=== PATIENT | female | born 1980 | race Caucasian/White ===

== ENCOUNTER 2016-11-29 17:49 | Emergency (ER) | payer MEDICAID ==
[2016-11-29] MEDS ORDERED: IBUPROFEN 600 MG TAB PO ONE (17:58)
[2016-11-29] MEDS ORDERED: ACETAMINOPHEN 500 MG TAB PO ONE (17:58)
[2016-11-29 18:01] VITALS: RESP 18; TEMP 97.5
--- NOTE | 2016-11-29 18:28 | EDPHY ---
H & P Time Seen by Provider: 11/29/16 17:55 HPI/ROS: This patient complains of left index finger injury from a horse bite shortly prior to arrival while wearing a glove. She explains that the horse was quite enthusiastic about the hay she was holding in inadvertently bit her finger. She felt severe pain and-she was pulling off her glove felt a pop. She notes swelling and ecchymosis at the PIP joint with increased pain with movement since the injury occurred shortly prior to arrival. She drove herself here by private vehicle. She did not take any medications prior to arrival and notes no other exacerbating factors. ROS: Neuro: No numbness or tingling Integumentary: No laceration or abrasion Musculoskeletal: No other injuries 5 point ROS is otherwise negative. Past Medical/Surgical History: Otherwise healthy Smoking Status: Heavy smoker Physical Exam: Physical Exam Vital signs are normal. General: No acute distress Cardiac: Brisk capillary refill is intact throughout the affected finger. Skin: No rash or pallor. No laceration or abrasion. Extremities: Atraumatic normal except for left index finger Left index finger: Patient has swelling, ecchymosis and tenderness to the PIP joint with limited range of motion due to pain. No malrotation is appreciated or gross deformity. No significant laxity at the affected PIP joint on my exam. Neuro: Alert with no sensorimotor deficits in the affected finger. Initial differential diagnosis: Finger dislocation with self reduction, finger fracture, finger sprain, finger contusion Constitutional: Initial Vital Signs Temperature (C) 36.4 C 11/29/16 17:58 Heart Rate 77 11/29/16 17:58 Respiratory Rate 18 11/29/16 17:58 Blood Pressure 139/99 H 11/29/16 17:58 O2 Sat (%) 98 11/29/16 17:58 O2 Delivery Mode Room Air Allergies/Adverse Reactions: acetaminophen [From Vicodin] Allergy (Verified 11/29/16 17:57) amoxicillin Allergy (Verified 11/29/16 17:57) hydrocodone [From Vicodin] Allergy (Verified 11/29/16 17:57) Home Medications: Medication Instructions Recorded traMADol [Ultram 50 mg (*)] 50 - 100 mg PO Q4 PRN #12 tab 11/29/16 MDM/Departure - MDM Diagnostics: Finger x-ray 3 view: Negative for fracture by my interpretation-soft tissue swelling is evident at the PIP. Imaging Results: Imaging Impressions Finger X-Ray 11/29/16 17:59 Impression: No fracture. [place] soft tissue swelling. Medications Given: Discontinued Medications Acetaminophen (Tylenol) 1,000 mg PO EDNOW ONE Stop: 11/29/16 17:59 Last Admin: 11/29/16 18:11 Dose: 1,000 mg Ibuprofen (Motrin) 600 mg PO EDNOW ONE Stop: 11/29/16 17:59 Last Admin: 11/29/16 18:11 Dose: 600 mg ED Course/Re-evaluation: Patient is placed in Alumafoam volar splint with plan for splinting with this for 3 days followed by dynamic splinting with aby taping. Counseled her regarding her injury. I suspect that she had a finger dislocation that self reduced when she pulled off her glove in a counseled her regarding this. On exam no evidence of significant laxity or other complicating factors. She will follow up with Orthopedics. Ibuprofen and Tylenol p.o.. Patient complained of significant ongoing pain. Will prescribe tramadol to use if needed for pain that prevents sleep despite ibuprofen and Tylenol. The acetaminophen allergy listed above is actually hydrocodone and I think is the hydrocodone component of the medication rather than a true Tylenol allergy - Depart Disposition: Home, Routine, Self-Care Clinical Impression: Finger sprain Qualifiers: Encounter type: initial encounter Finger: ring finger Sprain of finger site: interphalangeal joint Laterality: left Qualified Code(s): S63.635A - Sprain of interphalangeal joint of left ring finger, initial encounter Condition: Good Instructions: Finger Sprain (ED) Additional Instructions: Diagnosis: Finger sprain Plan: Ice Alumafoam splint for the next 3 days, then remove in use aby-tape to middle finger - "dynamic splinting" until symptoms improve - likely over the next 7-10 days. Consider follow up with orthopedic doctor for any ongoing worsening symptoms despite treatment plan Ibuprofen, Tylenol and tramadol if needed for pain that prevents sleep. No driving, alcohol or come tramadol. Referrals: NONE *PRIMARY CARE P,. [Primary Care Provider] - As per Instructions Michael Alfaro MD [Medical Doctor] - As per Instructions
[2016-11-29 19:02] VITALS: BP 124/62; PULSE 74; O2SAT 96
== END 2016-11-29 19:00 | disposition home or self-care (01) ==
LOC: CED 17:49
DX: S63.635A Sprain of interphalangeal joint of left ring finger, initial encounter (principal); F17.200 Nicotine dependence, unspecified, uncomplicated; W55.11XA Bitten by horse, initial encounter
CPT/HCPCS: 73140-PO; L3925